=== PATIENT | female | born 1955 | race Caucasian/White ===

== ENCOUNTER → 2021-08-29 | Outpatient (CLI) | payer MEDICARE | LOC: RAH 14:48 | PROVIDERS: ATTEND Internal Medicine | DX: N64.4 Mastodynia (principal); R59.0 Localized enlarged lymph nodes; N63.20 Unspecified lump in the left breast, unspecified quadrant | CPT/HCPCS: 76641 ==

== ENCOUNTER → 2022-11-05 | Outpatient (CLI) | payer MEDICARE | END | disposition home or self-care (01) | LOC: RAH 08:38 | PROVIDERS: ATTEND Internal Medicine | DX: E80.6 Other disorders of bilirubin metabolism (principal); R10.9 Unspecified abdominal pain; K59.09 Other constipation | CPT/HCPCS: 76700 ==

== ENCOUNTER → 2023-04-12 | Outpatient (CLI) | payer MEDICARE | END | disposition home or self-care (01) | LOC: SHCH 09:36 | PROVIDERS: ATTEND Internal Medicine | DX: I50.9 Heart failure, unspecified (principal); I51.7 Cardiomegaly | CPT/HCPCS: 93306 ==

== ENCOUNTER → 2023-04-19 | Outpatient (CLI) | payer MEDICARE | END | disposition home or self-care (01) | LOC: SHCH 12:43 | PROVIDERS: ATTEND Internal Medicine | DX: R60.0 Localized edema (principal); R06.02 Shortness of breath; I50.9 Heart failure, unspecified; E11.9 Type 2 diabetes mellitus without complications | CPT/HCPCS: 93970 ==

== ENCOUNTER → 2023-05-15 | Outpatient (CLI) | payer MEDICARE | END | disposition home or self-care (01) | LOC: RAH 15:02 | PROVIDERS: ATTEND Internal Medicine | DX: M17.0 Bilateral primary osteoarthritis of knee (principal); M25.562 Pain in left knee; M25.561 Pain in right knee | CPT/HCPCS: 73562 ==

== ENCOUNTER → 2023-11-25 | Outpatient (CLI) | payer MEDICARE | END | disposition home or self-care (01) | LOC: RAH 08:50 | PROVIDERS: ATTEND Internal Medicine | DX: K76.0 Fatty (change of) liver, not elsewhere classified (principal); R16.0 Hepatomegaly, not elsewhere classified; R10.9 Unspecified abdominal pain; Z90.710 Acquired absence of both cervix and uterus | CPT/HCPCS: 76700; 76856 ==

== ENCOUNTER → 2024-09-24 | Outpatient (CLI) | payer MEDICARE ==
--- NOTE | 2024-09-25 04:51 | HMCIMG ---
EXAM: CR Chest, 2 views CLINICAL HISTORY: Other forms of dyspnea. COMPARISON: None provided. FINDINGS: The lungs show no infiltrates or other acute findings. No pleural effusion or pneumothorax. The cardiomediastinal silhouette is within normal limits. No acute osseous abnormality. Mild right diaphragmatic eventration. IMPRESSION: No acute cardiopulmonary process is evident. Mild right diaphragmatic eventration. /[place]
== END | disposition home or self-care (01) ==
LOC: RAH 15:48
PROVIDERS: ATTEND Internal Medicine
DX: J98.6 Disorders of diaphragm (principal); R06.09 Other forms of dyspnea
CPT/HCPCS: 71046

== ENCOUNTER → 2024-09-28 | Outpatient (CLI) | payer MEDICARE ==
--- NOTE | 2024-09-28 16:03 | HMCSR ---
APPROVED REPORT EXAM: Two-dimensional and M-mode echocardiogram with Doppler and color Doppler. INDICATION ICD: R06.09 Other forms of dyspnea 2D Dimensions IVSd1.0 (0.7-1.1cm)LVEF(%)65.3 (>50%)LVED Vol(simp.)76.0 mL LVDd4.5 (3.8-5.6cm)FS(%)36 %LVES Vol(simp.)21.0 mL PWd1.0 (0.7-1.1cm)LA (2D)3.9 (1.6-4.0cm)LVEF(%, simp.)72 % IVSs1.3 cmAo Root(2D)2.6 (2.0-3.7cm) LVDs2.9 (2.5-4.0cm)LVOT diam2.1 (1.8-2.4cm) PWs1.5 cmIVC diam1.5 cm M-Mode Dimensions EPSS0.5 cm LA (MM)3.8 (1.6-4.0cm) Ao Root(MM)3.3 (2.0-3.7cm) Aortic Valve AoV Vmax1.9 m/Gomez Peak GR14.1 mmHgLVOT Vmax1.1 m/s AoV VTI0.4 mAo Mean GR8.1 mmHgLVOT VTI0.23 m TAM (VMAX)2.05 cm2AVA (VTI) 2.3 cm2 Mitral Valve MV E Vmax76.3 cm/sDECEL Ewiz118 ms MV A Vmax89.7 cm/sP 1/2 T44 ms E/A ratio0.9MVA (PHT)5.0 cm2 TDI E/E' Xxfjms23.9E/E' Qmdnpst97.9 Medial E' Peak V6.42 cm/sLateral E' Peak V5.93 cm/s Tricuspid Valve TR Vmax1.7 m/sRAP (EST) 8 vwNtNOCT00.0 mmHg TR Peak GR11.0 mmHg Left Ventricle The left ventricle is normal size. There is normal LV segmental wall motion. There is normal left roxann tricular wall thickness. The LVEF is > 65%. Stage I diastolic dysfunction. Right Ventricle The right ventricle is normal size. The right ventricular systolic function is normal. Atria The left atrium size is normal. The right atrium size is normal. Aortic Valve The aortic valve is normal in structure. No aortic regurgitation is present. There is no aortic valvu lar stenosis. Mitral Valve The mitral valve is normal in structure. There is no mitral valve regurgitation noted. There is no mi tral valve stenosis. Tricuspid Valve The tricuspid valve is normal in structure. There is trace of tricuspid valve regurgitation noted. Pulmonic Valve The pulmonary valve is normal in structure. There is no pulmonic valvular regurgitation. Great Vessels The aortic root is normal in size. The IVC is normal in size and collapses <50% with inspiration. Pericardium There is no pericardial effusion. Other Information Quality : Technically difficult study due to pts habitus Conclusion The LVEF is > 65%. There is normal LV segmental wall motion. Stage I diastolic dysfunction. The aortic root is normal in size. There is no pericardial effusion.
== END | disposition home or self-care (01) ==
LOC: RAH 13:43
PROVIDERS: ATTEND Internal Medicine
DX: I51.7 Cardiomegaly (principal); R06.09 Other forms of dyspnea
CPT/HCPCS: 93306